=== PATIENT | female | born 1935 | race Caucasian/White ===

== ENCOUNTER 2020-05-27 19:14 | Emergency (ER) | payer MEDICARE, SELFPAY ==
[2020-05-27 19:16] VITALS: BP 140/120; PULSE 72; RESP 16; TEMP 36.4; O2SAT 96; BMI 21.5
[2020-05-27 19:20] VITALS: BP 171/73; PULSE 82
--- NOTE | 2020-05-27 19:35 | CT_ITS ---
STUDY: CT BRAIN WITHOUT CONTRAST REASON FOR EXAM: Female, 85 years old. FALL H/O SHUNT RADIATION DOSAGE (If Supplied By Facility): CTDIvol = ( 44.99 ) mGy, DLP = ( 1553.12 ) mGycm TECHNIQUE: Transaxial CT imaging of the brain was performed without administration of intravenous contrast material. Individualized dose optimization techniques were used for this CT. COMPARISON: No relevant priors. FINDINGS: Normal soft tissue structures. Normal calvarium. There is mild cerebral atrophy with widening of the extra-axial spaces and ventricular dilatation. Right posterior ventriculoperitoneal shunt is identified. No elena hydrocephalus. There is encephalomalacia/scoliosis along the shunt tract. Normal basal ganglia and thalami. Normal brainstem. Normal cerebellum. There is no intracranial hemorrhage. There are no findings of an acute ischemic infarction. Normal visualized paranasal sinuses. CT/Brain/Head without Contrast IMPRESSION: 1. No acute intracranial hemorrhage or mass effect. 2. Right ventriculoperitoneal shunt without hydrocephalus. No comparison study available to assess for interval change. 3. Central parenchymal volume loss. White matter changes that are nonspecific but most commonly associated with chronic small vessel ischemic disease. Electronically Signed: Kimo Enriquez MD ([facility]) at 20:49 EST , Service support ,
--- NOTE | 2020-05-27 19:35 | CT_ITS ---
STUDY: CT CERVICAL SPINE WITHOUT CONTRAST REASON FOR EXAM: Female, 85 years old. FALL RADIATION DOSAGE (If Supplied By Facility): CTDIvol = ( 20.01 ) mGy, DLP = ( 416.06 ) mGycm TECHNIQUE: High resolution transaxial imaging was performed without contrast material. Sagittal and coronal images were reconstructed. Individualized dose optimization techniques were used for this CT. COMPARISON: None FINDINGS: Normal craniovertebral junction. There are degenerative changes of the anterior atlantoaxial articulation. Normal odontoid process. Normal cervical lordosis. Normal vertebral bodies and posterior osseous elements. C2-3: Normal endplates. Normal disc height and morphology. Normal central canal and intervertebral neuroforamina. C3-4: Disc space narrowing with anterior spondylosis, posterior disc osteophyte complex with canal and left more than right foraminal stenosis. C4-5: Disc space narrowing with posterior disc osteophyte complex, uncovertebral hypertrophy with canal and bilateral foraminal stenosis. C5-6: Slight degenerative anterolisthesis due to bilateral facet arthropathy. Disc space narrowing with endplate sclerosis, anterior spondylosis, uncovertebral hypertrophy and facet arthropathy causing minor canal and moderate bilateral foraminal stenosis. C6-7: Disc space narrowing with endplate sclerosis and anterior spondylosis C7-T1: Normal endplates. Normal disc height and morphology. Normal central canal and intervertebral neuroforamina. There are prominent lymph nodes of the upper mediastinum including lymph nodes in the precarinal region measuring 1.1 x 1.1 cm. There is atherosclerosis of the thoracic aorta and carotid arteries. AP shunt catheter is partially visualized. CT/Spine Cervical without Contras IMPRESSION: 1. No cervical spine fracture or traumatic subluxation. 2. Degenerative changes, as above. 3. Mild mediastinal adenopathy, incompletely visualized. No comparison study. A nonemergent chest CT with IV contrast suggested assuming no relevant comparison studies documenting stability. Electronically Signed: Kimo Enriquez MD ([facility]) at 20:53 EST , Service support ,
--- NOTE | 2020-05-27 19:35 | ED.DCSUM_ITS ---
- ER Visit Summary Date of Service: 05/27/20 Chief Complaint: [Fall with head injury] History of Present Illness: The patient is a 85 F [presents to the emergency department from care home after sustaining a fall today approximately 4:45 PM. Patient is a poor historian given her history of dementia. Patient did strike her head and there was concern that she had a hematoma to the back of her head. Patient's been acting normally otherwise and she is had no vomiting. Patient does have history of a LPN [employer] shunt. She did complain of some right-sided hip pain although she states she has been ambulatory since the fall however this is unclear if true. Patient denies recent illness. She denies chest or abdomen pain.] Physical Examination: [HEENT-PERRLA, EOMI. Cranial nerves II through XII grossly intact. TMs clear. Mucous membranes moist. No adenopathy. Patient has small left posterior hematoma noted without any bony depressions. Mild diffuse C-spine tenderness without any bony step-offs. No external evidence of trauma to her face. Cardiovascular-regular rate and rhythm without murmur or ectopy Lungs-clear to auscultation, chest wall stable without crepitus or subcu emphysema Abdomen-normoactive bowel sounds, soft, nontender, no rebound or rigidity, no peritoneal signs. Extremities-intact ?4, normal range of motion, normal pulses, atraumatic. Patient does have tenderness palpation over the right hip. There is no shortening or external rotation noted with the hip. Minimal discomfort with logrolling and straight leg raising.] Test Results: [CT C-spine showed no fractures only degenerative changes. Patient had a CT scan of the brain without contrast that showed a right-sided LPN [employer] shunt without evidence of hydrocephalus and no evidence of traumatic injury. There was no intracranial hemorrhage. X-rays of the right hip and pelvis were obtained and read by myself as no acute fractures. Radiology in agreement.] Emergency Department Course and Treatment: [] Treatment Plan: [Patient will be discharged back to the care home. Advised to follow-up with primary care physician 3 to 5 days.] Disposition: [Discharged home in stable condition] Impression: [Mechanical fall Closed head injury Right hip contusion] This note was generated with [employer] software. It may contain incorrect words, spelling, and punctuation that were not noted in review of the chart prior to signing
--- NOTE | 2020-05-27 19:35 | RAD_ITS ---
STUDY: X-RAY - PELVIS AND RIGHT HIP REASON FOR EXAM: Female, 85 years old. fall, pain right hip TECHNIQUE: 3 views of the pelvis and hip. COMPARISON: None. FINDINGS: There is a non-specific bowel gas pattern. There are atherosclerotic vascular calcifications of the pelvic arteries. Left hip replacement is in gross alignment. Catheter projects over the right abdomen/pelvis. There is diffuse osteopenia. Normal bilateral iliac wings, sacroiliac joints and visualized sacrum. Normal bilateral superior and inferior pubic rami. There is narrowing with sclerosis of the pubic symphysis. Normal bilateral ischial tuberosities. Normal visualized femoral head. Normal acetabulum. Normal hip joint. RAD/HIP, UNI W/ Pelvis 2-3 Views IMPRESSION: 1. No acute fracture. Electronically Signed: Kimo Enriquez MD ([facility]) at 20:17 EST , Service support ,
--- NOTE | 2020-05-27 21:00 | ED.DEP ---
ED Disposition - Plan for ED Patient: Instructions: ED Mechanical Fall, ED Head Injury (Adult), ED Hip Contusion Referrals: Damion Boyd MD [Primary Care Provider] - 3-5 Days
[2020-05-27 21:42] VITALS: BP 111/59; PULSE 80; RESP 19; O2SAT 95
== END 2020-05-27 21:56 | disposition home or self-care (01) ==
LOC: ED 20:29
PROVIDERS: Emergency Provider Emergency Medicine; PCP Family Medicine
DX: S09.90XA Unspecified injury of head, initial encounter (principal); S70.01XA Contusion of right hip, initial encounter; W01.10XA Fall on same level from slipping, tripping and stumbling with subsequent striking against unspecified object, initial encounter; Y93.9 Activity, unspecified; Y92.129 Unspecified place in nursing home as the place of occurrence of the external cause; Y99.9 Unspecified external cause status; F03.90 Unspecified dementia, unspecified severity, without behavioral disturbance, psychotic disturbance, mood disturbance, and anxiety; Z79.899 Other long term (current) drug therapy; Z98.2 Presence of cerebrospinal fluid drainage device
CPT/HCPCS: 70450; 72125; 73502; 99284

== ENCOUNTER → 2020-11-15 | Outpatient (REF) | payer MEDICARE, SELFPAY ==
[2020-11-15 07:58] LABS: Anion Gap 7 (5-15); BUN 24 mg/dL (7-18); BUN/Creat Ratio 29.7 RATIO (10-20); Calcium,Total 8.4 mg/dL (8.5-10.1); Chloride 107 mmol/L (98-107); Creatinine, Serum 0.81 mg/dL (0.55-1.02); EST Glomerular Filtration Rate 72 mL/min (>60); Est Glom Filt Rate - Afr Amer 87 mL/min (>60); Glucose 80 mg/dL (74-106); Potassium 3.9 mmol/L (3.5-5.1); Sodium Level 138 mmol/L (136-145)
== END | disposition home or self-care (01) ==
LOC: OLS.SW400 05:00
PROVIDERS: PCP Family Medicine; Visit Provider Internal Medicine
DX: N17.9 Acute kidney failure, unspecified (principal); I10 Essential (primary) hypertension; E78.5 Hyperlipidemia, unspecified; F03.90 Unspecified dementia, unspecified severity, without behavioral disturbance, psychotic disturbance, mood disturbance, and anxiety
CPT/HCPCS: 36415; 80048